=== PATIENT | male | born 1995 | race American Indian/Alaskan Native ===

== ENCOUNTER 2017-11-15 20:22 | Emergency (ER) | payer MEDICAID, SELFPAY ==
[2017-11-15 20:37] VITALS: BP 146/93
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
== END 2017-11-15 21:42 | disposition home or self-care (01) ==
LOC: DL.ED 20:22
DX: S00.81XA Abrasion of other part of head, initial encounter (principal); F17.210 Nicotine dependence, cigarettes, uncomplicated; W23.0XXA Caught, crushed, jammed, or pinched between moving objects, initial encounter
CPT/HCPCS: 70450; 70486; 72125; 73140-FA; 99284

== ENCOUNTER 2018-02-14 13:09 | Emergency (ER) | payer OTHER, MEDICAID ==
[2018-02-14 13:23] VITALS: BP 135/88
[2018-02-14] MEDS ORDERED: Lidocaine 1% 30 ML SDV INJECT ONE (13:51)
[2018-02-14] MEDS ORDERED: Bacitracin Oint 1 GM U/D Packet TOP ONE (13:51)
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
== END 2018-02-14 14:24 | disposition home or self-care (01) ==
LOC: DL.ED 13:09
DX: S01.81XA Laceration without foreign body of other part of head, initial encounter (principal); V29.9XXA Motorcycle rider (driver) (passenger) injured in unspecified traffic accident, initial encounter
CPT/HCPCS: 12001; 12011; 99283

== ENCOUNTER 2024-04-20 01:02 | Emergency (ER) | payer MEDICAID, SELFPAY ==
[2024-04-20 01:25] LABS: BASOPHILS PERCENT AUTO 0.2 % (0.0-1.0); EOSINOPHILS PERCENT AUTO 1.8 % (1.0-3.0); HEMATOCRIT 40.8 % (40.0-54.0); HEMOGLOBIN 13.2 g/dL (14.0-18.0); LYMPHOCYTES PERCENT AUTO 17.5 % (20.5-50.1); MEAN CORPUSCULAR HEMOGLOBIN 26.5 pg (27.0-34.0); MEAN CORPUSCULAR HGB CONC 32.4 g/dL (33.0-35.0); MEAN CORPUSCULAR VOLUME 81.9 fL (80-100); MONOCYTES PERCENT AUTO 6.6 % (2-8); NEUTROPHILS PERCENT AUTO 73.9 % (42.2-75.2); PLATELET COUNT,PLT 410 10^3/uL (150-450); RED BLOOD CELL COUNT 4.98 10^6/uL (4.6-6.2); WHITE BLOOD CELL COUNT,WBC 12.2 10^3/uL (5.0-10.0)
[2024-04-20] MEDS: Lactated Ringers 1,000 ML IV ONE (01:35)
[2024-04-20] MEDS: Sodium Chloride 0.9% 10 ML Syringe FLUSH PRN (01:36)
[2024-04-20] MEDS: Ondansetron 4 MG/2 ML SDV IVPUSH ONE (01:36)
[2024-04-20 01:38] LABS: APPEARANCE,URINE CLEAR (CLEAR); BILIRUBIN,URINE NEGATIVE (NEGATIVE); COLOR,URINE YELLOW (YELLOW); GLUCOSE,URINE NEGATIVE (NEGATIVE); KETONES,URINE NEGATIVE (NEGATIVE); LEUKOCYTE ESTERASE,URINE NEGATIVE (NEGATIVE); NITRITE,URINE NEGATIVE (NEGATIVE); OCCULT BLOOD,URINE NEGATIVE (NEGATIVE); PH,URINE 8.5 (5.0-9.0); PROTEIN,URINE 30 (NEGATIVE); UROBILINOGEN,URINE 0.2 mg/dL (0.2-1.0)
[2024-04-20 01:41] LABS: ALANINE AMINOTRANSFERASE,ALT 20 U/L (16-63); ALBUMIN 4.1 g/dL (3.4-5.0); ALKALINE PHOSPHATASE 145 U/L (46-116); ANION GAP 12.3 mEq/L (7-13); ASPARTATE AMNIOTRANSFERASE,AST 20 U/L (15-37); BILIRUBIN TOTAL 0.4 mg/dL (0.2-1.0); BLOOD UREA NITROGEN,BUN 10 mg/dL (7-18); CALCIUM 9.3 mg/dL (8.5-10.1); CARBON DIOXIDE,CO2 31 mmol/L (21-32); CHLORIDE,CL 102 mmol/L (98-107); CREATININE 0.83 mg/dL (0.70-1.30); ETHANOL BLOOD MEDICAL 31 mg/dL (0); GLUCOSE RANDOM 103 mg/dL (70-99); LIPASE 16 U/L (16-77); MAGNESIUM 2.1 mg/dL (1.8-2.4); POTASSIUM,K 3.3 mmol/L (3.5-5.1); PROTEIN TOTAL,TP 8.2 g/dL (6.4-8.2); SODIUM,NA 142 mmol/L (136-145)
[2024-04-20 01:41] LABS: BARBITURATES,URINE NEGATIVE (NEGATIVE); BENZODIAZEPINE,URINE NEGATIVE (NEGATIVE); MDMA (ECSTASY), URINE NEGATIVE (NEGATIVE); METHADONE,URINE NEGATIVE (NEGATIVE); METHAMPHETAMINES,URINE POSITIVE (NEGATIVE); OPIATES,URINE NEGATIVE (NEGATIVE); PHENCYCLIDINE,URINE NEGATIVE (NEGATIVE); TCA,URINE NEGATIVE (NEGATIVE)
[2024-04-20 01:42] LABS: ESTIMATED GFR 124 mL/min (>=60)
[2024-04-20 01:42] LABS: AMPHETAMINES,URINE POSITIVE (NEGATIVE); OXYCODONE,URINE NEGATIVE (NEGATIVE)
[2024-04-20 01:49] LABS: BACTERIA,URINE FEW /HPF (0-FEW/HPF); EPITHELIAL CELLS,URINE FEW /HPF (NOT SEEN); MUCUS,URINE MODERATE /LPF (NOT SEEN); RBC,URINE 0-5 /HPF (0-5)
[2024-04-20] MEDS: Prochlorperazine 25 MG Supp RECTAL ONE (02:19)
[2024-04-20] MEDS: Take Home: Ondansetron 4 MG Tab.DIS, 5 Tab Pack PO ONE (03:12)
[2024-04-20 03:15] VITALS: BP 145/120; PULSE 99
[2024-04-20] MEDS: Potassium Chloride 10 MEQ Tab.ER PO ONE (03:21)
== END 2024-04-20 03:26 | disposition home or self-care (01) ==
LOC: DL.ED 01:02
DX: R11.2 Nausea with vomiting, unspecified (principal); F12.10 Cannabis abuse, uncomplicated; E87.6 Hypokalemia; F17.210 Nicotine dependence, cigarettes, uncomplicated
CPT/HCPCS: 36415; 80053; 80305-QW; 80307; 81001; 83690; 83735; 85025; 96361; 96374; 99283; 99284-25; A9270-GY; J2405; J3490; J7120; Q0162

== ENCOUNTER 2025-06-21 15:59 | Emergency (ER) | payer MEDICAID ==
[2025-06-21] MEDS: Lactated Ringers 1,000 ML IV SCH (16:20)
[2025-06-21 16:22] LABS: BASOPHILS PERCENT AUTO 0.2 % (0.0-1.0); EOSINOPHILS PERCENT AUTO 0.3 % (1.0-3.0); LYMPHOCYTES PERCENT AUTO 13.0 % (20.5-50.1); MONOCYTES PERCENT AUTO 5.6 % (2-8); NEUTROPHILS PERCENT AUTO 80.9 % (42.2-75.2); PLATELET COUNT,PLT 320 10^3/uL (150-450); RED BLOOD CELL COUNT 5.31 10^6/uL (4.6-6.2); WHITE BLOOD CELL COUNT,WBC 6.2 10^3/uL (5.0-10.0)
[2025-06-21 16:42] LABS: A/G RATIO 0.9; ALANINE AMINOTRANSFERASE,ALT 18.0 U/L (16-63); ASPARTATE AMNIOTRANSFERASE,AST 25.0 U/L (15-37); BILIRUBIN TOTAL 0.7 mg/dL (0.2-1.0); BLOOD UREA NITROGEN,BUN 11.0 mg/dL (7-18); CARBON DIOXIDE,CO2 23.0 mmol/L (21-32); CHLORIDE,CL 95.0 mmol/L (98-107); CREATININE 0.89 mg/dL (0.70-1.30); EST CRCL DRUG DOSING (CG) 103.18 mL/min; ESTIMATED GFR 120.0 mL/min (>=60); GLUCOSE RANDOM 143.0 mg/dL (70-99); POTASSIUM,K 3.2 mmol/L (3.5-5.1); PROTEIN TOTAL,TP 7.6 g/dL (6.4-8.2); SODIUM,NA 135.0 mmol/L (136-145)
[2025-06-21 16:45] LABS: LACTIC ACID 1.1 mmol/L (0.4-2.0)
[2025-06-21] MEDS: Potassium Chloride 10 MEQ Tab.ER PO ONE (16:53)
[2025-06-21] MEDS: Take Home: Ondansetron 4 MG Tab.DIS, 5 Tab Pack PO ONE (17:48)
[2025-06-21 17:56] VITALS: BP 143/107; PULSE 71
== END 2025-06-21 17:51 | disposition home or self-care (01) ==
LOC: DL.ED 15:59
DX: R11.2 Nausea with vomiting, unspecified (principal)
CPT/HCPCS: 36415; 80053; 83605; 83690; 85025; 96360; 99282; 99285; A9270; J7120; Q0162